=== PATIENT | male | born 2000 | race Caucasian/White ===

== ENCOUNTER 2021-08-09 16:10 | Observation (INO) | payer SELFPAY ==
[~2021-08-09] VITALS: Ht 180.3 cm; Wt 72.6 kg
[2021-08-09 19:57] LABS: BASOPHILS ABSOLUTE AUTO 0.05 K/mm3 (0.00-0.23); BASOPHILS PERCENT AUTO 1 % (0-2); EOSINOPHILS ABSOLUTE AUTO 0.21 K/mm3 (0.00-0.68); EOSINOPHILS PERCENT AUTO 3 % (0-6); Hematocrit 46.3 % (37.0-53.0); Hemoglobin 15.7 g/dL (13.5-17.5); IMMATURE GRAN ABSOLUTE AUTO 0.03 K/mm3 (0.00-0.10); IMMATURE GRAN PERCENT AUTO 0 % (0-1); LYMPHOCYTES ABSOLUTE AUTO 2.09 K/mm3 (0.84-5.20); LYMPHOCYTES PERCENT AUTO 30 % (21-46); MONOCYTES ABSOLUTE AUTO 0.57 K/mm3 (0.16-1.47); MONOCYTES PERCENT AUTO 8 % (4-13); Mean Corpuscular HGB 30.8 pg (26.0-34.0); Mean Corpuscular HGB Conc 33.9 g/dL (31.5-36.5); Mean Corpuscular Volume 91 fL (80-100); Mean Platelet Volume 9.6 fL (9.1-12.4); NEUTROPHILS ABSOLUTE AUTO 4.01 K/mm3 (1.96-9.15); NEUTROPHILS PERCENT AUTO 58 % (41-73); Platelet Count 244 K/mm3 (150-400); RDW Coefficient Variation 12.1 % (11.7-14.2); RDW Standard Deviation 40.4 fL (35.1-46.3); Red Blood Cell Count 5.09 M/mm3 (4.30-5.90); White Blood Cell Count 6.96 K/mm3 (4.00-11.30)
[2021-08-09 20:15] LABS: Ethanol (Alcohol), Blood, Med <3 mg/dL; Salicylate <1.7 mg/dL (2.8-20.0)
[2021-08-09 20:23] LABS: Acetaminophen, Random <2.0 ug/mL (10.0-30.0); Alanine Aminotransfer (ALT/SGP 37 U/L (12-78); Albumin, Blood 3.5 g/dL (3.4-5.0); Albumin/Globulin Ratio 1.2 (0.8-1.8); Alk Phos 98 U/L (50-136); Anion Gap 5 mmol/L (6-16); Aspartate Aminotrans (AST/SGOT 23 U/L (12-37); Blood Urea Nitrogen 14 mg/dL (8-24); Bun/Creatinine Ratio 17.3 (12.0-20.0); CO2, Blood 28 mmol/L (21-32); Calcium, Blood 8.6 mg/dL (8.5-10.1); Chloride, Blood 111 mmol/L (98-108); Creatinine, Blood 0.81 mg/dL (0.60-1.20); Glomerular Filtration Rate 128 (60-); Glucose, Blood 81 mg/dL (70-99); Potassium, Blood 3.7 mmol/L (3.5-5.5); Sodium, Blood 144 mmol/L (136-145); Total Protein, Blood 6.5 g/dL (6.4-8.2)
[2021-08-09 21:00] LABS: Source, Urine Clean Catch
[2021-08-09 21:09] LABS: Appearance, Urine Hazy (Clear); Bilirubin, Urine Neg (Neg); Blood, Urine Neg (Neg); Color, Urine Yellow (P-Yellow); Glucose Qualitative, Urine Neg (Neg); Ketones, Urine 1+ (Neg); Leukocyte Esterase, Urine 1+ (Neg); Nitrite, Urine Neg (Neg); Protein, Urine 1+ (Neg); Specific Gravity, Urine 1.015 (1.003-1.022); Urobilinogen, Urine 3+ (Normal)
[2021-08-09 21:26] LABS: U Amphetamine Screen Not Detected; U Barbituate Screen Not Detected; U Benzodiazapine Screen Not Detected; U Buprenorphine Screen Not Detected; U Cannabinoids Screen DETECTED; U Cocaine Screen Not Detected; U Methadone Screen Not Detected; U Methamphetamine Screen Not Detected; U Opiates Screen Not Detected; U Oxycodone Screen Not Detected; U Phencyclidine Screen Not Detected; U Propoxyphene Screen Not Detected
[2021-08-09 21:30] LABS: Red Blood Cells, Urine 0-2 /hpf (0-2)
[2021-08-09 21:31] LABS: Amorphous Mod (0-Heavy); Bacteria Few /hpf; Mucus Mod (0-Heavy); Squamous Epithelial Cells Rare /hpf (Few)
[2021-08-11] MEDS ORDERED: SERT25 PO (10:16)
[2021-08-11] MEDS ORDERED: OLAN10 PO (10:16)
== END 2021-08-11 10:24 | disposition home or self-care (01) ==
LOC: ER 16:10 → EOR 16:11
PROVIDERS: Physician Assistant; ADMIT Emergency Medicine
DX: F25.1 Schizoaffective disorder, depressive type (principal); F17.210 Nicotine dependence, cigarettes, uncomplicated
CPT/HCPCS: 80053; 81001; 85025; 87086; 99285; A9270; G0378; G0480; Q3014

== ENCOUNTER 2021-11-07 10:30 | Emergency (ER) | payer OTHER ==
[~2021-11-07] VITALS: Ht 180.3 cm; Wt 79.4 kg
[~2021-11-07 10:30] MED LIST: OLAN10 PO; SERT25 PO
[2021-11-07] MEDS ORDERED: OLAN10 PO (12:04)
[2021-11-07] MEDS ORDERED: SERT25 PO (12:04)
== END 2021-11-07 12:09 | disposition home or self-care (01) ==
LOC: ER 10:30
DX: Z76.0 Encounter for issue of repeat prescription (principal); F31.9 Bipolar disorder, unspecified; F17.200 Nicotine dependence, unspecified, uncomplicated; Z88.0 Allergy status to penicillin
CPT/HCPCS: 99281

== ENCOUNTER 2021-11-14 10:14 | Emergency (ER) | payer OTHER ==
[~2021-11-14] VITALS: Ht 182.9 cm; Wt 65.8 kg
[2021-11-14] MEDS ORDERED: OLAN10 PO (10:30)
[2021-11-14] MEDS ORDERED: Zoloft25 MG PO (10:30)
== END 2021-11-14 10:32 | disposition home or self-care (01) ==
LOC: ER 10:14
DX: Z76.0 Encounter for issue of repeat prescription (principal); F31.9 Bipolar disorder, unspecified; F17.200 Nicotine dependence, unspecified, uncomplicated; Z79.899 Other long term (current) drug therapy; Z88.0 Allergy status to penicillin
CPT/HCPCS: 99281

== ENCOUNTER 2022-03-27 09:49 | Emergency (ER) | payer OTHER ==
[~2022-03-27] VITALS: Ht 182.9 cm; Wt 90.7 kg
[~2022-03-27 09:49] MED LIST changes: +Zoloft25 MG PO
[2022-03-27] MEDS ORDERED: OLAN10 PO (10:30)
[2022-03-27] MEDS ORDERED: Bactrim Ds Tab1 EACH PO (10:30)
[2022-03-27] MEDS ORDERED: Zoloft25 MG PO (10:30)
== END 2022-03-27 10:45 | disposition home or self-care (01) ==
LOC: ER 09:49
DX: Z76.0 Encounter for issue of repeat prescription (principal); L02.213 Cutaneous abscess of chest wall; L02.212 Cutaneous abscess of back [any part, except buttock and flank]; F17.200 Nicotine dependence, unspecified, uncomplicated; Z88.0 Allergy status to penicillin; Z79.899 Other long term (current) drug therapy; Z59.00 Homelessness unspecified
CPT/HCPCS: 99281

== ENCOUNTER 2023-04-15 21:25 | Emergency (ER) | payer OTHER ==
[~2023-04-15] VITALS: Ht 188 cm; Wt 77.1 kg
[~2023-04-15 21:25] MED LIST changes: +Bactrim Ds Tab1 EACH PO
[2023-04-15] MEDS ORDERED: Ketorolac Tromethamine 15mg Vial IV ONE (22:05)
[2023-04-15 22:38] VITALS: BP 126/66
== END 2023-04-15 22:39 | disposition home or self-care (01) ==
LOC: ER 21:25
DX: M25.552 Pain in left hip (principal); F17.200 Nicotine dependence, unspecified, uncomplicated; F31.9 Bipolar disorder, unspecified; F90.9 Attention-deficit hyperactivity disorder, unspecified type; F20.9 Schizophrenia, unspecified; Z88.0 Allergy status to penicillin
CPT/HCPCS: 96372; 99283-25; J1885

== ENCOUNTER 2024-02-25 10:59 | Emergency (ER) | payer OTHER ==
[~2024-02-25] VITALS: Ht 182.9 cm; Wt 65.8 kg
[2024-02-25] MEDS ORDERED: NS 1,000 ML IV SCH (11:45)
[2024-02-25 12:35] LABS: BASOPHILS ABSOLUTE AUTO 0.04 K/mm3 (0.00-0.23); BASOPHILS PERCENT AUTO 0 % (0-2); EOSINOPHILS ABSOLUTE AUTO 0.09 K/mm3 (0.00-0.68); EOSINOPHILS PERCENT AUTO 1 % (0-6); Hematocrit 43.2 % (37.0-53.0); Hemoglobin 14.8 g/dL (13.5-17.5); IMMATURE GRAN ABSOLUTE AUTO 0.03 K/mm3 (0.00-0.10); IMMATURE GRAN PERCENT AUTO 0 % (0-1); LYMPHOCYTES ABSOLUTE AUTO 1.26 K/mm3 (0.84-5.20); LYMPHOCYTES PERCENT AUTO 14 % (21-46); MONOCYTES ABSOLUTE AUTO 0.72 K/mm3 (0.16-1.47); MONOCYTES PERCENT AUTO 8 % (4-13); Mean Corpuscular HGB 30.3 pg (26.0-34.0); Mean Corpuscular HGB Conc 34.3 g/dL (31.5-36.5); Mean Corpuscular Volume 88 fL (80-100); Mean Platelet Volume 9.5 fL (9.1-12.4); NEUTROPHILS ABSOLUTE AUTO 7.03 K/mm3 (1.96-9.15); NEUTROPHILS PERCENT AUTO 77 % (41-73); Platelet Count 301 K/mm3 (150-400); RDW Coefficient Variation 12.4 % (11.7-14.2); RDW Standard Deviation 39.9 fL (35.1-46.3); Red Blood Cell Count 4.89 M/mm3 (4.30-5.90); White Blood Cell Count 9.17 K/mm3 (4.00-11.30)
[2024-02-25 12:58] LABS: Ethanol (Alcohol), Blood, Med <3 mg/dL; Free Thyroxine 1.19 ng/dL (0.70-1.60); Salicylate <1.7 mg/dL (2.8-20.0)
[2024-02-25 12:59] LABS: Alanine Aminotransfer (ALT/SGP 22 U/L (12-78); Albumin, Blood 3.9 g/dL (3.4-5.0); Albumin/Globulin Ratio 1.1 (0.8-1.8); Alk Phos 99 U/L (50-136); Anion Gap 10 mmol/L (3-11); Aspartate Aminotrans (AST/SGOT 23 U/L (12-37); Bilirubin, Total 1.1 mg/dL (0.1-1.0); Blood Urea Nitrogen 15 mg/dL (8-24); Bun/Creatinine Ratio 15.7 (12.0-20.0); CO2, Blood 27 mmol/L (21-32); Calcium, Blood 8.9 mg/dL (8.5-10.1); Chloride, Blood 109 mmol/L (98-108); Creatinine, Blood 0.95 mg/dL (0.60-1.20); Globulin, Blood 3.6 g/dL (2.2-4.0); Glomerular Filtration Rate 114 (60-); Glucose, Blood 104 mg/dL (70-99); Potassium, Blood 3.4 mmol/L (3.5-5.5); Sodium, Blood 143 mmol/L (136-145); Total Protein, Blood 7.5 g/dL (6.4-8.2)
[2024-02-25 13:00] LABS: Acetaminophen, Random <2.0 ug/mL (10.0-30.0)
[2024-02-25] MEDS ORDERED: RX Prepack 2 Sprays Naloxone HCL 4 MG/SPRAY UD ONE (14:20)
[2024-02-25 15:02] LABS: U Amphetamine Screen DETECTED; U Barbituate Screen Not Detected; U Benzodiazapine Screen Not Detected; U Buprenorphine Screen Not Detected; U Cannabinoids Screen DETECTED; U Cocaine Screen Not Detected; U Methadone Screen Not Detected; U Methamphetamine Screen DETECTED; U Opiates Screen Not Detected; U Oxycodone Screen Not Detected; U Phencyclidine Screen Not Detected
[2024-02-25 15:13] VITALS: BP 128/80
[2024-02-25] MEDS ORDERED: NARCAN4 M1 (15:16)
== END 2024-02-25 15:27 | disposition home or self-care (01) ==
LOC: ER 10:59
PROVIDERS: Student in an Organized Health Care Education/Training Program
DX: T40.411A Poisoning by fentanyl or fentanyl analogs, accidental (unintentional), initial encounter (principal); F17.200 Nicotine dependence, unspecified, uncomplicated; Z88.0 Allergy status to penicillin
CPT/HCPCS: 80053; 80320; 84439; 84443; 85025; 93005; 93010; 99284-25; A9270; G0480; J7030

== ENCOUNTER 2024-06-14 18:36 | Emergency (ER) | payer OTHER ==
[~2024-06-14] VITALS: Ht 170.2 cm; Wt 63.5 kg
[~2024-06-14 18:36] MED LIST changes: +NARCAN4 M1
[2024-06-14] MEDS ORDERED: Diphth,Pertuss(Acell),Tet Vac 0.5 ML VIAL IM ONE (19:00)
[2024-06-14] MEDS ORDERED: Cleocin HCl150 MG PO (20:32)
[2024-06-14] MEDS ORDERED: DOXY100 PO (20:32)
[2024-06-14 20:38] VITALS: BP 100/53
[2024-06-14] MEDS ORDERED: HYDR1TAB94 PO (21:09)
[2024-06-14] MEDS ORDERED: Doxycycline Hyclate 100 MG TAB PO ONE (21:50)
[2024-06-14] MEDS ORDERED: Clindamycin HCl 150 MG Cap PO ONE (21:50)
== END 2024-06-14 22:00 ==
LOC: ER 18:36
DX: S62.511B Displaced fracture of proximal phalanx of right thumb, initial encounter for open fracture (principal); S62.524A Nondisplaced fracture of distal phalanx of right thumb, initial encounter for closed fracture; S81.852A Open bite, left lower leg, initial encounter; S61.251A Open bite of left index finger without damage to nail, initial encounter; F17.200 Nicotine dependence, unspecified, uncomplicated; Z23 Encounter for immunization; Z88.0 Allergy status to penicillin; W54.0XXA Bitten by dog, initial encounter
CPT/HCPCS: 12002; 73120; 73590; 90471; 90715; 99283-25; A9270